=== PATIENT | female | born 1975 | race Caucasian/White ===

== ENCOUNTER 2017-08-11 13:54 | Emergency (ER) | payer BC ==
[~2017-08-11] VITALS: Ht 152.4 cm; Wt 61.2 kg
[2017-08-11] MEDS ORDERED: ALPR1 (14:26)
[2017-08-11 14:28] LABS: BASOPHILS ABSOLUTE AUTO 0.08 K/mm3 (0.00-0.23); BASOPHILS PERCENT AUTO 1 % (0-2); EOSINOPHILS ABSOLUTE AUTO 0.13 K/mm3 (0.00-0.68); EOSINOPHILS PERCENT AUTO 1 % (0-6); Hemoglobin 14.9 g/dL (11.5-16.0); IMMATURE GRAN ABSOLUTE AUTO 0.03 K/mm3 (0.00-0.10); IMMATURE GRAN PERCENT AUTO 0 % (0-1); LYMPHOCYTES ABSOLUTE AUTO 3.59 K/mm3 (0.84-5.20); LYMPHOCYTES PERCENT AUTO 34 % (21-46); MONOCYTES ABSOLUTE AUTO 0.66 K/mm3 (0.16-1.47); MONOCYTES PERCENT AUTO 6 % (4-13); Mean Corpuscular HGB Conc 34.7 g/dL (31.5-36.5); Mean Corpuscular Volume 98 fL (80-100); Mean Platelet Volume 10.6 fL (9.1-12.4); NEUTROPHILS ABSOLUTE AUTO 6.09 K/mm3 (1.96-9.15); NEUTROPHILS PERCENT AUTO 58 % (41-73); Platelet Count 207 K/mm3 (150-400); RDW Coefficient Variation 13.4 % (11.7-14.2); RDW Standard Deviation 48.3 fL (35.1-46.3); Red Blood Cell Count 4.38 M/mm3 (3.80-5.20); White Blood Cell Count 10.58 K/mm3 (4.00-11.30)
[2017-08-11 14:47] LABS: Alanine Aminotransfer (ALT/SGP 20 U/L (12-78); Albumin, Blood 4.2 g/dL (3.4-5.0); Alk Phos 78 U/L (50-136); Anion Gap 11 mmol/L (6-16); Aspartate Aminotrans (AST/SGOT 26 U/L (12-37); Bilirubin, Total 0.6 mg/dL (0.1-1.0); Blood Urea Nitrogen 10 mg/dL (8-24); Bun/Creatinine Ratio 23.1 (12.0-20.0); CO2, Blood 22 mmol/L (21-32); Calcium, Blood 9.5 mg/dL (8.5-10.1); Chloride, Blood 104 mmol/L (98-108); Creatinine, Blood 0.43 mg/dL (0.40-1.00); Glomerular Filtration Rate >60 (60-); Glucose, Blood 106 mg/dL (70-99); Potassium, Blood 4.3 mmol/L (3.5-5.5); Sodium, Blood 137 mmol/L (136-145); Total Protein, Blood 8.2 g/dL (6.4-8.2)
[2017-08-11] MEDS ORDERED: Omeprazole20 M1 PO (17:08)
== END 2017-08-11 17:30 | disposition home or self-care (01) ==
LOC: ER 13:54
PROVIDERS: Physician Assistant
DX: R10.32 Left lower quadrant pain (principal); R19.7 Diarrhea, unspecified; K64.4 Residual hemorrhoidal skin tags; N20.0 Calculus of kidney; F17.210 Nicotine dependence, cigarettes, uncomplicated; Z98.84 Bariatric surgery status
CPT/HCPCS: 36415; 74177; 80053; 81000; 82272; 83690; 84703; 85025; 96361; 96374; 96375; 99284; C9113; J2060; J2405; J7030; Q9967

== ENCOUNTER 2020-12-14 07:39 | Day surgery (SDC) | payer BC ==
[~2020-12-14 07:39] MED LIST: ALPR1; Omeprazole20 M1 PO
== END 2020-12-14 23:00 | disposition home or self-care (01) ==
LOC: MOI MAM 07:39
DX: C50.912 Malignant neoplasm of unspecified site of left female breast (principal); Z17.1 Estrogen receptor negative status [ER-]
CPT/HCPCS: 19083; 77065; A4648

== ENCOUNTER 2021-01-18 07:48 | Day surgery (SDC) | payer BC ==
[2021-01-20] MEDS ORDERED: LOSA50 PO (15:36)
[2021-01-20] MEDS ORDERED: ALPR.5 PO (15:36)
[2021-01-20] MEDS ORDERED: RIZATRIPTAN10 MG SL (15:37)
[2021-01-20] MEDS ORDERED: TRAZ100 PO (15:37)
[2021-01-20] MEDS ORDERED: METO25 PO (15:37)
== END 2021-01-18 23:59 | disposition home or self-care (01) ==
LOC: MOI US 07:48
DX: C50.812 Malignant neoplasm of overlapping sites of left female breast (principal)
CPT/HCPCS: 19285; 77065; A4648

== ENCOUNTER 2021-01-22 07:59 | Day surgery (SDC) | payer BC ==
[~2021-01-22] VITALS: Ht 152.4 cm; Wt 62.4 kg
[~2021-01-22 07:59] MED LIST changes: +ALPR.5 PO; +LOSA50 PO; +METO25 PO; +RIZATRIPTAN10 MG SL; +TRAZ100 PO
--- NOTE | 2021-01-22 08:59 | NUR ---
PT TO [facility] WITH TECH.
--- NOTE | 2021-01-22 09:12 | NUR ---
PT RETURNED TO [facility] FROM [facility]
--- NOTE | 2021-01-22 09:18 | NUR ---
Ambulatory in Day Surgery History, Chart, Medications and Allergies reviewed before start of procedure.Patient confirms NPO status and agrees with scheduled surgery. Patient reports completing Chlorhexadine shower X2 prior to admission to hospital.Lungs clear T/O to Auscultation. Surgical site prepped with 2% Chlorhexidine cloth wipe. Patient States Post-Procedure ride home has been arranged WITH MOTHER
--- NOTE | 2021-01-22 11:23 | NUR ---
01/22/21 1123 Adrián Franco 1104 LEFT BREAST PROCEDURE STARTED AFTER PATIENT RE-PREPED AND RE- DRAPED
--- NOTE | 2021-01-22 13:08 | NUR ---
PER KIM BALDWIN STATES CXR CLEAR
--- NOTE | 2021-01-22 14:15 | NUR ---
Discharge instructions reviewed with patient. Patient verbalizes understanding. Copy given to patient to take home. Patient States Post-Procedure ride home has been arranged. Discharged via wheelchair to private car for ride home.
== END 2021-01-22 23:56 | disposition home or self-care (01) ==
LOC: ORSCMMR 07:59 → ORSCSDS 09:00 → ORSCMMR 09:00 → NM 09:00 → ORSCMMR 23:56
PROVIDERS: Surgery
PROC: 0HBU0ZZ Excision of Left Breast, Open Approach (ICD-10-PCS; principal; 2021-01-22 10:00)
PROC: 0JH60WZ Insertion of Totally Implantable Vascular Access Device into Chest Subcutaneous Tissue and Fascia, Open Approach (ICD-10-PCS; principal; 2021-01-22 10:00)
DX: C50.812 Malignant neoplasm of overlapping sites of left female breast (principal); F41.8 Other specified anxiety disorders; M79.7 Fibromyalgia; I10 Essential (primary) hypertension; K21.9 Gastro-esophageal reflux disease without esophagitis; Z79.899 Other long term (current) drug therapy; F17.210 Nicotine dependence, cigarettes, uncomplicated
CPT/HCPCS: 38792; 76098; 77001; 88307; 88342; 88360; A9270; A9520; C1788; J0690; J1100; J1642; J2250; J2405; J2704; J2765; J3010; J7120; Q9968

== ENCOUNTER → 2021-04-14 | Outpatient (CLI) | payer BC ==
[2021-04-14 14:24] LABS: Stool Occult Blood Guaiac 1 Neg (Neg)
== END ==
LOC: LAB 12:08 → LAB SHORT 12:08
PROVIDERS: Internal Medicine Hematology & Oncology
DX: C50.919 Malignant neoplasm of unspecified site of unspecified female breast (principal); Z88.8 Allergy status to other drugs, medicaments and biological substances
CPT/HCPCS: 82270

== ENCOUNTER 2021-04-23 10:25 | Day surgery (SDC) | payer BC ==
[~2021-04-23] VITALS: Ht 152.4 cm; Wt 61.7 kg
--- NOTE | 2021-04-23 12:55 | NUR ---
PT. CAME IN WITH HER OWN NUMBING CREAM ON HER MEDIPORT.
--- NOTE | 2021-04-23 12:58 | NUR ---
04/23/21 1258 Nhi Causey DEACCESSED PER PROTOCOL. PRESSURE HELD ON SITE. SITE COVERED WITH 2X2 GAUZE COVERED WITH A BANDAID.
== END 2021-04-23 12:25 | disposition home or self-care (01) ==
LOC: ORSCSDS 10:25
PROVIDERS: Surgery
PROC: 0DJD8ZZ Inspection of Lower Intestinal Tract, Via Natural or Artificial Opening Endoscopic (ICD-10-PCS; principal; 2021-04-23 11:45)
PROC: 0DJ08ZZ Inspection of Upper Intestinal Tract, Via Natural or Artificial Opening Endoscopic (ICD-10-PCS; principal; 2021-04-23 11:45)
DX: Z98.84 Bariatric surgery status (principal); I10 Essential (primary) hypertension; F41.8 Other specified anxiety disorders; K21.9 Gastro-esophageal reflux disease without esophagitis; Z87.891 Personal history of nicotine dependence; Z79.899 Other long term (current) drug therapy
CPT/HCPCS: J0330; J0461; J1642; J2405; J2704; J7120

== ENCOUNTER 2022-04-11 07:46 | Day surgery (SDC) | payer BC ==
[~2022-04-11] VITALS: Ht 152.4 cm; Wt 68.0 kg
[~2022-04-11 07:46] MED LIST changes: +ONDA4ODT MM
[2022-04-11] MEDS ORDERED: CYMBALTA20 M1 PO (08:25)
[2022-04-11] MEDS ORDERED: BUSP5 PO (08:27)
--- NOTE | 2022-04-11 09:49 | NUR ---
04/11/22 0949 EDGARDO GARCIA PAIN 6/10 RIGHT UPPER CHEST. PAIN 2-3 THROAT FROM LMA. NORCO 5/325MG AND FENTANYL 25MCG IV GIVEN NOW
== END 2022-04-11 10:20 | disposition home or self-care (01) ==
LOC: ORSCSDS 07:46
PROVIDERS: Surgery
PROC: 0JPT0WZ Removal of Totally Implantable Vascular Access Device from Trunk Subcutaneous Tissue and Fascia, Open Approach (ICD-10-PCS; principal; 2022-04-11 09:00)
DX: Z45.2 Encounter for adjustment and management of vascular access device (principal); I10 Essential (primary) hypertension; F17.210 Nicotine dependence, cigarettes, uncomplicated; F41.8 Other specified anxiety disorders; M79.7 Fibromyalgia; Z79.899 Other long term (current) drug therapy
CPT/HCPCS: A9270; J0690; J1100; J1885; J2405; J2704; J2795; J3010; J7120

== ENCOUNTER 2024-06-01 18:49 | Emergency (ER) | payer OTHER, BC ==
[~2024-06-01] VITALS: Ht 152.4 cm; Wt 61.2 kg
[~2024-06-01 18:49] MED LIST changes: +BUSP5 PO; +CYMBALTA20 M1 PO
[2024-06-01 19:54] LABS: BASOPHILS ABSOLUTE AUTO 0.08 K/mm3 (0.00-0.23); BASOPHILS PERCENT AUTO 1 % (0-2); EOSINOPHILS ABSOLUTE AUTO 0.22 K/mm3 (0.00-0.68); EOSINOPHILS PERCENT AUTO 3 % (0-6); Hematocrit 40.4 % (33.0-51.0); Hemoglobin 13.7 g/dL (11.5-16.0); IMMATURE GRAN ABSOLUTE AUTO 0.02 K/mm3 (0.00-0.10); IMMATURE GRAN PERCENT AUTO 0 % (0-1); LYMPHOCYTES ABSOLUTE AUTO 2.01 K/mm3 (0.84-5.20); LYMPHOCYTES PERCENT AUTO 24 % (21-46); MONOCYTES ABSOLUTE AUTO 0.57 K/mm3 (0.16-1.47); MONOCYTES PERCENT AUTO 7 % (4-13); Mean Corpuscular HGB 34.1 pg (26.0-34.0); Mean Corpuscular HGB Conc 33.9 g/dL (31.5-36.5); Mean Corpuscular Volume 101 fL (80-100); Mean Platelet Volume 9.8 fL (9.1-12.4); NEUTROPHILS PERCENT AUTO 65 % (41-73); Platelet Count 228 K/mm3 (150-400); RDW Coefficient Variation 13.2 % (11.7-14.2); RDW Standard Deviation 48.7 fL (35.1-46.3); Red Blood Cell Count 4.02 M/mm3 (3.80-5.20)
[2024-06-01 20:15] LABS: Albumin, Blood 3.4 g/dL (3.4-5.0); Albumin/Globulin Ratio 0.8 (0.8-1.8); Bilirubin, Total 0.5 mg/dL (0.1-1.0); Bun/Creatinine Ratio 21.2 (12.0-20.0); Calcium, Blood 9.2 mg/dL (8.5-10.1); Creatinine, Blood 0.71 mg/dL (0.40-1.00); Potassium, Blood 4.8 mmol/L (3.5-5.5); Total Protein, Blood 7.4 g/dL (6.4-8.2)
[2024-06-01 20:36] LABS: Source, Urine Clean Catch
[2024-06-01 20:39] LABS: Bilirubin, Urine Neg (Neg); Blood, Urine Neg (Neg); Glucose Qualitative, Urine Neg (Neg); Ketones, Urine Neg (Neg); Leukocyte Esterase, Urine Neg (Neg); Nitrite, Urine Neg (Neg); Protein, Urine Neg (Neg); Urobilinogen, Urine NORM (Normal)
[2024-06-01 20:49] LABS: Appearance, Urine Clear (Clear); Color, Urine Pale Yellow (P-Yellow)
[2024-06-01] MEDS ORDERED: OxyCODONE HCL 5 MG TAB PO ONE (22:40)
[2024-06-01] MEDS ORDERED: Diphth,Pertuss(Acell),Tet Vac 0.5 ML VIAL IM ONE (23:35)
[2024-06-01] MEDS ORDERED: Dexamethasone Sod Phos 10 MG/ML 1ML VIAL IV ONE (23:55)
[2024-06-01] MEDS ORDERED: Acetaminophen 500 MG Tab PO ONE (23:55)
[2024-06-01] MEDS ORDERED: Lidocaine 4% 1 Patch TOP ONE (23:55)
[2024-06-01] MEDS ORDERED: NS 1,000 ML IV SCH (23:55)
[2024-06-02] MEDS ORDERED: LIDO700A20 TOP (00:43)
[2024-06-02] MEDS ORDERED: DIAZ2 PO (01:00)
[2024-06-02 01:15] VITALS: BP 103/73
== END 2024-06-02 01:30 | disposition home or self-care (01) ==
LOC: ER 18:49
PROVIDERS: Student in an Organized Health Care Education/Training Program
DX: S29.012A Strain of muscle and tendon of back wall of thorax, initial encounter (principal); W01.0XXA Fall on same level from slipping, tripping and stumbling without subsequent striking against object, initial encounter; E86.0 Dehydration; Z88.6 Allergy status to analgesic agent; Z79.899 Other long term (current) drug therapy
CPT/HCPCS: 72070; 72100; 80053; 81003; 85025; 96361; 96374; 99283-25; A9270; J1100; J7030